=== PATIENT | male | born 1935 | race Hispanic/Latino ===

== ENCOUNTER 2017-06-14 12:42 | Inpatient (IN) | payer MEDICARE, OTHER ==
[2017-06-14 12:50] VITALS: BMI 25.0
[2017-06-14 14:56] LABS: VENOUS BLOOD GAS BASE EXCESS 7.2 mmol/L (0.0-2.0); VENOUS BLOOD PH 7.36 (7.32-7.43)
[2017-06-14 15:07] LABS: BASO # 0.03 K/mm3 (0.0-2.0); BASO % 0.5 % (0.0-3.0); EOS # 0.1 (0.0-0.7); EOS % 1.5 % (1.5-5.0); GRAN # 4.64 (1.4-6.5); GRAN % 76.6 % (50.0-68.0); LYMPH # 0.9 (1.2-3.4); MEAN CELL VOLUME 97.7 fl (80.0-105.0); MEAN CORPUSCULAR HEMOGLOBIN 32.6 pg (25.0-35.0); MEAN CORPUSCULAR HGB CONC 33.3 g/dl (31.0-37.0); MEAN PLATELET VOLUME 10.9 fl (7.0-11.0); MONO # 0.4 (0.1-0.6); MONO % 6.4 % (1.0-6.0); RED CELL DISTRIBUTION WIDTH 14.4 % (11.5-14.5); WHITE BLOOD COUNT 6.1 10^3/ul (4.5-11.0)
[2017-06-14 15:13] LABS: URINE BILIRUBIN NEGATIVE (NEGATIVE); URINE BLOOD NEGATIVE (NEGATIVE); URINE GLUCOSE (UA) NEGATIVE (NEGATIVE); URINE KETONE NEGATIVE (NEGATIVE); URINE LEUKOCYTE ESTERASE NEGATIVE Leu/uL (NEGATIVE); URINE PROTEIN NEGATIVE mg/dL (<30 mg/dL); URINE UROBILINOGEN 0.2 E.U./dL (<1 E.U./dL)
[2017-06-14 15:19] LABS: URINE APPEARANCE CLEAR (CLEAR); URINE COLOR YELLOW (YELLOW)
[2017-06-14 15:22] LABS: GFR AFRICAN-AMERICAN > 60
[2017-06-14 15:24] LABS: ALB/GLOB RATIO 1.3 (1.1-1.8); ALKALINE PHOSPHATASE 56 U/L (38-133); ALT/SGPT 26 U/L (7-56); AST/SGOT 27 U/L (15-59); BILIRUBIN,TOTAL 0.6 mg/dL (0.2-1.3); CALCIUM 9.3 mg/dL (8.4-10.5); CARBON DIOXIDE 30 mmol/L (21-33); CHLORIDE 102 mmol/L (98-107); POTASSIUM 3.9 mmol/L (3.6-5.0); SODIUM 143 mmol/L (132-148); TOTAL PROTEIN 7.2 g/dL (5.8-8.3)
[2017-06-14 15:27] LABS: BLOOD UREA NITROGEN 25 mg/dL (7-21); GLUCOSE,RANDOM 126 mg/dL (70-110)
--- NOTE | 2017-06-14 16:19 | ED PDOC ---
Arrival/HPI - General Chief Complaint: Groin Pain Time Seen by Provider: 06/14/17 13:50 Historian: Patient - History of Present Illness Narrative History of Present Illness (Text): 06/14/17 16:16 81-year-old male presents today with right groin pain and right-sided testicular pain and right lower pelvic pain. Patient states he woke up today with the pain and difficulty ambulating. Patient's caregiver states that when she cleaned the patient last night there was no erythema noted to the scrotum. She states now she is seeing erythema around the scrotum. He denies dysuria or urinary frequency or urgency. He is complaining of fatigue. He denies dizziness or weakness. No chest pain or shortness of breath. He denies nausea vomiting or diarrhea. No other complaints Time/Duration: Other (this morning) Symptom Onset: Sudden Symptom Course: Unchanged Quality: Aching Severity Level: 3 Past Medical History - Provider Review Nursing Documentation Reviewed: Yes - Travel History Have you recently traveled outside [place] w/in the past 3 mons?: No - Infectious Disease Hx of Infectious Diseases: None - Tetanus Immunization Tetanus Immunization: Unknown - Reproductive Currently : No - Cardiac Hx Atrial Fibrillation: Yes Hx Congestive Heart Failure: Yes Hx Hypertension: Yes Hx Pacemaker: Yes ([employer]) - Neurological HX Cerebrovascular Accident: Yes Hx Dementia: Yes Hx Paralysis: No Hx Parkinson's Disease: Yes - Hematological/Oncological Hx Blood Transfusions: No - Integumentary Hx Dermatological Disorder: (dry skin to bilateral lower extremities) - Musculoskeletal/Rheumatological Hx Musculoskeletal Disorders: No - Gastrointestinal Hx Crohn's Disease: No Hx Diverticulitis: No Hx Gastroesophageal Reflux: No Hx Gastrointestinal Ulcer: No Hx Liver Failure: No - Genitourinary/Gynecological Hx Genitourinary Disorders: Yes - Psychiatric Hx Emotional Abuse: No Hx Physical Abuse: No Hx Substance Use: No - Surgical History Other/Comment: Colonoscopy - polyps removal. Leg surgery. Pacemaker - Anesthesia Hx Anesthesia: Yes Hx Anesthesia Reactions: No Hx Malignant Hyperthermia: No - Suicidal Assessment Feels Threatened In Home Enviroment: No Family/Social History - Physician Review Nursing Documentation Reviewed: Yes Family/Social History: Unknown Family HX Smoking Status: Former Smoker Hx Alcohol Use: Yes (QUIT >20 YRS AGO) Hx Substance Use: No Hx Substance Use Treatment: No Allergies/Home Meds Allergies/Adverse Reactions: Allergies Penicillins Allergy (Severe, Verified 11/08/16 16:48) RASH Home Medications: Home Meds Medication Instructions Recorded Confirmed Tamsulosin [Flomax] 0.4 mg PO DAILY 12/28/13 06/14/17 Pramipexole [Mirapex] 0.5 mg PO HS 10/28/14 06/14/17 Warfarin Sodium [Coumadin] 5 mg PO DAILY 10/28/14 06/14/17 Digoxin [Lanoxin] 0.125 mg PO DAILY 07/23/16 06/14/17 Diltiazem HCl [Cardizem Cd] 180 mg PO QAM 07/23/16 06/14/17 Donepezil HCl [Aricept ODT] 10 mg PO DAILY 07/23/16 06/14/17 Fenofibrate Nanocrystallized 145 mg PO DAILY 07/23/16 06/14/17 [Tricor] Furosemide [Lasix] 40 mg PO QAM 07/23/16 06/14/17 Memantine HCl [Namenda Xr] 28 mg PO DAILY 07/23/16 06/14/17 Metoprolol Tartrate [Lopressor] 25 mg PO BID 07/23/16 06/14/17 Review of Systems - Review of Systems Constitutional: Fatigue. absent: Fevers Respiratory: absent: SOB, Cough Cardiovascular: absent: Chest Pain, Palpitations, Syncope Gastrointestinal: Other (groin pain). absent: Abdominal Pain, Diarrhea, Nausea , Vomiting, Appetite Changes, Hematochezia, Hematemesis Genitourinary Male: absent: Dysuria, Frequency, Hematuria Musculoskeletal: Arthralgias (right groin pain/hip pain). absent: Back Pain, Neck Pain Skin: Other (erythema scrotum) Neurological: absent: Headache, Dizziness Physical Exam Vital Signs Reviewed: Yes Vital Signs Temp Pulse Resp BP Pulse Ox 06/14/17 15:10 66 18 143/71 96 06/14/17 14:24 69 18 145/79 96 06/14/17 12:54 97.9 F 75 18 147/87 96 Temperature: Afebrile Blood Pressure: Normal Pulse: Regular Respiratory Rate: Normal Appearance: Positive for: Well-Appearing, Non-Toxic, Comfortable Pain Distress: None Mental Status: Positive for: Alert and Oriented X 3 - Systems Exam Head: Present: Atraumatic Mouth: Present: Moist Mucous Membranes Neck: Present: Normal Range of Motion Respiratory/Chest: Present: Clear to Auscultation, Good Air Exchange. No: Respiratory Distress, Accessory Muscle Use Cardiovascular: Present: Regular Rate and Rhythm, Normal S1, S2. No: Murmurs Abdomen: Present: Tenderness (minimal right lower pelvic tenderness), Normal Bowel Sounds. No: Distention, Peritoneal Signs, Rebound, Guarding Genitourinary Male: Present: Circumcised Penis, Testicle Tenderness (+ right testicular tenderness), Erythema (scrotal erythema; ). No: Normal External Genitalia, Penile Discharge, Testicle Swelling Upper Extremity: Present: Normal Inspection Lower Extremity: Present: NORMAL PULSES, Normal ROM, Neurovascularly Intact. No : CALF TENDERNESS, Tenderness (right hip; no tenderness, edema, or erythema. ), Swelling, Erythema Neurological: Present: GCS=15, Speech Normal Skin: Present: Warm, Dry, Normal Color Psychiatric: Present: Alert, Oriented x 3 Medical Decision Making ED Course and Treatment: 06/14/17 16:21 81yr old male with right groin and testicular pain. difficulty ambulating. cbc: wnl cmp; glucose; 126 Ua; wnl lactate; wnl blood cultures pending urine cultures pending duplex; right leg; no dvt testicular US; FINDINGS: RIGHT TESTICLE: Measures 3.4 x 2.3 x 2.6 cm. Homogeneous echotexture. No mass. 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 Normal flow demonstrated. RIGHT EPIDIDYMIS: Normal size and morphology. LEFT TESTICLE: Measures 3.0 x 2.4 x 2.5 cm. Homogeneous echotexture. No mass. Ectasia of the with rete testis is noted. Normal flow demonstrated. LEFT EPIDIDYMIS: Normal size and morphology. HYDROCELE: Left hydrocele. Trace right hydrocele. VARICOCELE: None. OTHER FINDINGS: None. IMPRESSION: Left hydrocele. Trace right hydrocele. Incidentally noted at ectasia of the rete testis bilaterally. No evidence of epididymo-orchitis. No evidence of testicular torsion. ct abd/pelvis without contrast: FINDINGS: LOWER THORAX: Unremarkable. LIVER: Unremarkable. No gross lesion or ductal dilatation. GALLBLADDER AND BILE DUCTS: Gallbladder removed PANCREAS: Unremarkable. No gross lesion or ductal dilatation. SPLEEN: Unremarkable. ADRENALS: Unremarkable. No mass. KIDNEYS AND URETERS: Unremarkable. No hydronephrosis. No solid mass. VASCULATURE: Unremarkable. No aortic aneurysm. BOWEL: Unremarkable. No obstruction. No gross mural thickening. There is severe diverticulosis APPENDIX: Unremarkable. Normal appendix. PERITONEUM: Unremarkable. No free fluid. No free air. LYMPH NODES: Unremarkable. No enlarged lymph nodes. BLADDER: Unremarkable. REPRODUCTIVE: Fluid is seen within the scrotum bilaterally consistent with hydrocele. There is no evidence of gas-forming infection within the scrotum. BONES: There is a mild compression deformity of L3 OTHER FINDINGS: None. IMPRESSION: Bilateral hydrocele. No evidence of gas-forming infection within the scrotum 06/14/17 17:49 ct abd/pelvis included right hip; no signs of fracture. hip non tender. full rom of hip pt denies pain while at rest. c/o right hip/groin pain and inability to ambulate. tylenol given for pain. i discussed results with patient and patients son. due to the patients inability to ambulate due to right leg/hip/groin pain. and patient lives alone. pt is high fall risk. will observe overnight have PT evaluate. case discussed with dr. sanchez. case discussed with dr. salinas in depth; accepts observation for risk, inability to ambulate due to leg pain Impression: Leg pain, groin pain, inability to ambulate, fall risk, rash scrotum , hydrocele Observational status to [facility]. Dr. salinas. with PT consult. - Lab Interpretations Lab Results: 06/14/17 14:30 06/14/17 14:30 Lab Results 06/14/17 14:30: WBC 6.1, RBC 4.30, Hgb 14.0, Hct 42.0, MCV 97.7, MCH 32.6, MCHC 33.3, RDW 14.4, Plt Count 195, MPV 10.9, Gran % 76.6 H, Lymph % (Auto) 15.0 L, [place] % (Auto) 6.4 H, Eos % (Auto) 1.5, Baso % (Auto) 0.5, Gran # 4.64, Lymph # 0.9 L, [place] # 0.4, Eos # 0.1, Baso # 0.03 06/14/17 14:30: Sodium 143, Chloride 102, Potassium 3.9, Carbon Dioxide 30, Anion Gap 15, BUN 25 H, Creatinine 1.0, Est GFR ( Amer) > 60, Est GFR ( Non-Af Amer) > 60, Random Glucose 126 H, Calcium 9.3, Total Bilirubin 0.6, AST 27, ALT 26, Alkaline Phosphatase 56, Total Protein 7.2, Albumin 4.0, Globulin 3.2, Albumin/Globulin Ratio 1.3 06/14/17 14:30: Urine Color Yellow, Urine Appearance Clear, Urine pH 6.0, Ur Specific [place] 1.015, Urine Protein Negative, Urine Glucose (UA) Negative, Urine Ketones Negative, Urine Blood Negative, Urine Nitrate Negative, Urine Bilirubin Negative, Urine Urobilinogen 0.2, Ur Leukocyte Esterase Negative 06/14/17 14:02: pO2 32, VBG pH 7.36, VBG pCO2 62.0 H, VBG HCO3 35.0 H, VBG Total CO2 36.9 H, VBG O2 Sat (Calc) 69.5 H, VBG Base Excess 7.2 H, VBG Potassium 5.8 H, Sodium 139.0, Chloride 102.0, Glucose 128 H, Lactate 1.2, FiO2 21.0, Venous Blood Potassium 5.8 H - RAD Interpretation Radiology Orders: 06/14/17 14:02 DUPLEX LOWER EXTRM VEIN RIGHT [US] Stat TESTES DUPLEX COMPLETE [US] Stat 06/14/17 14:03 ABD & PELVIS W/O PO OR IV CONT [CT] Stat Disposition/Present on Arrival - Present on Arrival Any Indicators Present on Arrival: No History of DVT/PE: No History of Uncontrolled Diabetes: No Urinary Catheter: No History of Decub. Ulcer: No History Surgical Site Infection Following: None - Disposition Have Diagnosis and Disposition been Completed?: Yes Diagnosis: Hip pain, Groin pain, Scrotal rash, Inability to ambulate due to hip, Risk for falls Disposition: HOSPITALIZED Disposition Time: 17:48 Patient Plan: Observation Patient Problems: Current Active Problems Problem Status Onset Groin pain Acute Hip pain Acute Inability to ambulate due to hip Acute Risk for falls Acute Scrotal rash Acute Condition: FAIR Forms: Handup (Taiwanese)
[2017-06-14 16:37] LABS: INR 2.94 (0.93-1.08); PARTIAL THROMBOPLASTIN TIME 38.5 Seconds (23.7-30.8)
--- NOTE | 2017-06-14 16:48 | CT ---
PROCEDURE: CT Abdomen and Pelvis without intravenous contrast HISTORY: R hip/ groin pain/scrotal redness. abd pain COMPARISON: None. TECHNIQUE: Without contrast.. Contrast Dose: Radiation dose: Total exam DLP = 653 mGy-cm. This CT exam was performed using one or more of the following dose reduction techniques: Automated exposure control, adjustment of the mA and/or kV according to patient size, and/or use of iterative reconstruction technique. FINDINGS: LOWER THORAX: Unremarkable. LIVER: Unremarkable. No gross lesion or ductal dilatation. GALLBLADDER AND BILE DUCTS: Gallbladder removed PANCREAS: Unremarkable. No gross lesion or ductal dilatation. SPLEEN: Unremarkable. ADRENALS: Unremarkable. No mass. KIDNEYS AND URETERS: Unremarkable. No hydronephrosis. No solid mass. VASCULATURE: Unremarkable. No aortic aneurysm. BOWEL: Unremarkable. No obstruction. No gross mural thickening. There is severe diverticulosis APPENDIX: Unremarkable. Normal appendix. PERITONEUM: Unremarkable. No free fluid. No free air. LYMPH NODES: Unremarkable. No enlarged lymph nodes. BLADDER: Unremarkable. REPRODUCTIVE: Fluid is seen within the scrotum bilaterally consistent with hydrocele. There is no evidence of gas-forming infection within the scrotum. BONES: There is a mild compression deformity of L3 OTHER FINDINGS: None. IMPRESSION: Bilateral hydrocele. No evidence of gas-forming infection within the scrotum
--- NOTE | 2017-06-14 17:04 | US ---
HISTORY: testicular pain TECHNIQUE: Realtime sonography through the scrotum with color and doppler flow. COMPARISON: None Available. FINDINGS: RIGHT TESTICLE: Measures 3.4 x 2.3 x 2.6 cm. Homogeneous echotexture. No mass. 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 Normal flow demonstrated. RIGHT EPIDIDYMIS: Normal size and morphology. LEFT TESTICLE: Measures 3.0 x 2.4 x 2.5 cm. Homogeneous echotexture. No mass. Ectasia of the with rete testis is noted. Normal flow demonstrated. LEFT EPIDIDYMIS: Normal size and morphology. HYDROCELE: Left hydrocele. Trace right hydrocele. VARICOCELE: None. OTHER FINDINGS: None. IMPRESSION: Left hydrocele. Trace right hydrocele. Incidentally noted at ectasia of the rete testis bilaterally. No evidence of epididymo-orchitis. No evidence of testicular torsion.
--- NOTE | 2017-06-14 19:01 | US ---
PROCEDURE: Right lower extremity venous US HISTORY: Leg pain and swelling. Evaluate for DVT. PHYSICIAN(S): Senthil Parker M.D. TECHNIQUE: Duplex sonography and color-flow Doppler with graded compression were used to evaluate the deep venous system of the right lower extremity. FINDINGS: The visualized deep venous system of the right lower extremity is sonographically normal and compressible. Normal waveforms and augmentation are seen. There is no sonographic evidence for deep venous thrombosis in the visualized segments of the right lower extremity. IMPRESSION: 1. No sonographic evidence for deep venous thrombosis in the visualized segments of the right lower extremity.
[2017-06-14] MEDS ORDERED: PRAMIPEXOLE 0.5 MG PO SCH (22:00)
--- NOTE | 2017-06-14 23:14 | CP.PCM.PN ---
Subjective - Date & Time of Evaluation Date of Evaluation: 06/15/17 Time of Evaluation: 01:31 - Subjective Subjective: Patient was seen at bedside. Nurse Jessy called and told that he was given 975 mg of tylenol at about 1700 hours. Was still having pain in right groin. He has pain in right proximal medial thigh. Denies history of arthritis or any injury in the area. Has no other complaints. No weakness , no paraesthesia. ROS:Negative except as mentioned above. Medical record was reviewed. Objective - Vital Signs/Intake and Output Vital Signs (last 24 hours): Temp Pulse Resp BP Pulse Ox 97.9 F 68 18 138/68 96 06/14/17 12:54 06/14/17 17:37 06/14/17 17:37 06/14/17 17:37 06/14/17 17:37 Intake and Output: 06/14/17 06/15/17 18:59 06:59 Intake Total 120 Balance 120 - Medications Medications: Current Medications Digoxin (Lanoxin) 0.125 mg PO DAILY [facility] Diltiazem HCl (Cardizem Cd) 180 mg PO QAM [facility] Fenofibrate (Tricor) 145 mg PO DAILY [facility] Metoprolol Tartrate (Lopressor) 25 mg PO BID [facility] Non-Formulary Medication (Donepezil Hcl [Aricept Odt]) 10 mg PO DAILY [facility] Pramipexole Dihydrochloride (Mirapex) 0.5 mg PO HS [facility] Tamsulosin HCl (Flomax) 0.4 mg PO DAILY [facility] Warfarin Sodium (Coumadin) 5 mg PO DAILY [facility] PRN Reason: Protocol - Labs Labs: PT 31.8 Seconds (9.9-11.8) H* 06/14/17 14:30 INR 2.94 (0.93-1.08) H 06/14/17 14:30 APTT 38.5 Seconds (23.7-30.8) H 06/14/17 14:30 - Constitutional Appears: Well, No Acute Distress - Head Exam Head Exam: ATRAUMATIC, NORMAL INSPECTION, NORMOCEPHALIC - Eye Exam Eye Exam: Normal appearance - ENT Exam ENT Exam: Normal External Ear Exam - Neck Exam Neck Exam: Normal Inspection - Respiratory Exam Respiratory Exam: NORMAL BREATHING PATTERN - Cardiovascular Exam Cardiovascular Exam: absent: JVD - GI/Abdominal Exam GI & Abdominal Exam: absent: Distended - Rectal Exam Rectal Exam: Deferred - Exam Additional comments: Deferred. - Extremities Exam Additional comments: Right hip ROM -full. Minimal tenderness in right proximal medial thigh. No redness,no swelling. Scrotum - normal . - Back Exam Back Exam: NORMAL INSPECTION - Neurological Exam Neurological Exam: Alert, Oriented x3 - Psychiatric Exam Psychiatric exam: Normal Affect, Normal Mood - Skin Skin Exam: Normal Color Assessment and Plan - Assessment and Plan (Free Text) Assessment: Right proximal medial thigh pain. HTN. CAD. HLD. Chronic atrial fibrillation. Hx Parkinson's disease. Hx CVA. S/P PPM. Plan: Ultram 50 mg PO now. Continue present management as per PMD.
--- NOTE | 2017-06-15 08:24 | RAD ---
PROCEDURE: CHEST RADIOGRAPH, 1 VIEW HISTORY: testicular pain/groin pain, weakness COMPARISON: Portable chest 11/08/2016 FINDINGS: LUNGS: No acute infiltrate is identified bilaterally. PLEURA: No pneumothorax or pleural fluid seen. CARDIOVASCULAR: Cardiomediastinal silhouette appears stable including pacemaker/defibrillator. OSSEOUS STRUCTURES: No significant abnormalities. VISUALIZED UPPER ABDOMEN: Normal. OTHER FINDINGS: None. IMPRESSION: No definite acute cardiopulmonary disease is appreciated with examination appearing stable compared to prior chest radiograph 11/08/2016 .
[2017-06-15] MEDS: Digoxin 125 mcg (0.125 mg) Tab PO SCH (09:24)
[2017-06-15] MEDS: Oxycodone/Acetaminophen 5/325 mg Tab PO PRN ×2 (09:25→15:00)
[2017-06-15] MEDS: diltiaZEM 180 mg/24 Hours CD Cap PO SCH (09:25)
--- NOTE | 2017-06-15 09:33 | CARD ---
APPROVED REPORT EKG Measurement Heart [id number] <Conclusion> Demand pacemaker, interpretation is based on intrinsic rhythm Underlying atrial fibrillation T wave abnormality, consider inferior ischemia Abnormal ECG
--- NOTE | 2017-06-15 11:56 | CP.PCM.CON ---
History of Present Illness - History of Present Illness History of Present Illness: 81 year old male with PMH of atrial fibrillation, chronic CHF, HTN, S/P pacemaker placement, history of cerebrovascular accident, dementia, Parkinson's disease, history of swelling of the right testes/scrotum in the past ( intermittent) was brought in to [facility] complaining of right groin scrotal pain on the day of admission. Apparently the patient's caregiver noticed some erythema and swelling of the right scrotal area. The patient denies penile discharge, no dysuria, no urinary frequency or urgency, no fever or chills, no nausea or vomiting, no chest pain, no SOB, no abdominal pain, no diarrhea, no headache or dizziness. He also states that he feels better today and that the swelling and pain are much better today. CT scan of the abdomen and pelvis as well as testicular ultrasound were done which showed bilateral hydrocoele. Infectious diseases consult is requested to further evaluate and manage. Review of Systems - Review of Systems All systems: reviewed and no additional remarkable complaints except (as per HPI ) Past Patient History - Infectious Disease Hx of Infectious Diseases: None - Tetanus Immunizations Tetanus Immunization: Unknown - Past Social History Smoking Status: Former Smoker - CARDIAC Hx Congestive Heart Failure: Yes Hx Hypertension: Yes Hx Pacemaker: Yes ([employer]) - NEUROLOGICAL HX Cerebrovascular Accident: Yes Hx Dementia: Yes Hx Parkinson's Disease: Yes - HEMATOLOGICAL/ONCOLOGICAL Hx Blood Transfusions: No - INTEGUMENTARY Hx Dermatological Problems: (dry skin to bilateral lower extremities) - MUSCULOSKELETAL/RHEUMATOLOGICAL Hx Falls: Yes - GASTROINTESTINAL Hx Crohn's Disease: No Hx Diverticulitis: No Hx Gastroesophageal Reflux: No Hx Liver Failure: No - GENITOURINARY/GYNECOLOGICAL Hx Genitourinary Disorders: Yes - PSYCHIATRIC Hx Emotional Abuse: No Hx Physical Abuse: No - SURGICAL HISTORY Other/Comment: Colonoscopy - polyps removal. Leg surgery. Pacemaker - ANESTHESIA Hx Anesthesia: Yes Hx Anesthesia Reactions: No Hx Malignant Hyperthermia: No Meds Allergies/Adverse Reactions: Allergies Allergy/AdvReac Type Severity Reaction Status Date / Time Penicillins Allergy Severe RASH Verified 11/08/16 16:48 - Medications Medications: Current Medications Digoxin (Lanoxin) 0.125 mg PO DAILY [facility] Last Admin: 06/15/17 09:24 Dose: 0.125 mg Diltiazem HCl (Cardizem Cd) 180 mg PO QAM [facility] Last Admin: 06/15/17 09:25 Dose: 180 mg Fenofibrate (Tricor) 145 mg PO DAILY [facility] Last Admin: 06/15/17 09:25 Dose: 145 mg Metoprolol Tartrate (Lopressor) 25 mg PO BID [facility] Last Admin: 06/15/17 09:25 Dose: 25 mg Non-Formulary Medication (Donepezil Hcl [Aricept Odt]) 10 mg PO DAILY [facility] Oxycodone/Acetaminophen (Percocet 5/325 Mg Tab) 1 tab PO Q6H PRN PRN Reason: Pain, moderate (4-7) Stop: 06/18/17 09:14 Last Admin: 06/15/17 09:25 Dose: 1 tab Pramipexole Dihydrochloride (Mirapex) 0.5 mg PO HS [facility] Last Admin: 06/14/17 23:40 Dose: 0.5 mg Tamsulosin HCl (Flomax) 0.4 mg PO DAILY [facility] Last Admin: 06/15/17 09:25 Dose: 0.4 mg Warfarin Sodium (Coumadin) 5 mg PO DAILY [facility] PRN Reason: Protocol Last Admin: 06/15/17 09:24 Dose: 5 mg Physical Exam - Constitutional Appears: Non-toxic, No Acute Distress - Head Exam Head Exam: NORMAL INSPECTION - ENT Exam ENT Exam: Mucous Membranes Moist - Neck Exam Neck exam: Negative for: Lymphadenopathy, Meningismus - Respiratory Exam Respiratory Exam: Decreased Breath Sounds - Cardiovascular Exam Cardiovascular Exam: +S1, +S2 - GI/Abdominal Exam GI & Abdominal Exam: Soft. absent: Tenderness Results - Vital Signs Recent Vital Signs: Last Vital Signs Temp 97.5 F L 06/15/17 06:00 Pulse 81 06/15/17 09:25 Resp 22 06/15/17 06:00 BP 113/89 06/15/17 09:25 Pulse Ox 95 06/15/17 06:00 - Labs Result Diagrams: 06/14/17 14:30 06/14/17 14:30 Assessment & Plan - Assessment and Plan (Free Text) Plan: Assessment Bilateral hydrocoele; currently no evidence of orchitis or epidydimitis on imaging and on physical exam, no evidence of skin and skin structure infection atrial fibrillation chronic CHF HTN S/P pacemaker placement history of cerebrovascular accident dementia Parkinson's disease history of swelling of the right testes/scrotum in the past (intermittent) Plan Reviewed testicular ultrasound and CT scan of the abdomen and pelvis will monitor the patient off antibiotics suggest Urology evaluation for the hydrocoele
[2017-06-15] MEDS: Non Formulary Medication (Donepezil Hcl [Aricept Odt] 10 MG) PO SCH (17:49)
--- NOTE | 2017-06-15 23:36 | HP ---
HISTORY OF PRESENT ILLNESS: Mr. Allison is an 81-year-old male presented to the ED with the right groin pain, right-sided testicular pain. Ultrasound of the testicle showed bilateral hydrocele. CAT scan of the abdomen and pelvis did not show any mass lesions. No fever. No cough with expectoration. He has a history of CHF controlled with current medications. Denies any fevers, cough with expectoration. No travel history. No discharge from penis. PAST MEDICAL HISTORY: CHF, pacemaker, hypertension, atrial fibrillation, currently on Coumadin. Dementia, CVA. PAST SURGICAL HISTORY: Colonoscopy. FAMILY HISTORY: Noncontributory. SOCIAL HISTORY: No history of alcohol abuse. No former smoker. Lives at home. ALLERGIES: PENICILLIN. HOME MEDICATIONS: Flomax 0.4 mg daily, Mirapex 0.5 mg p.o. bedtime, Coumadin 5 mg daily, digoxin 0.125 mg daily, diltiazem 180 mg daily, Aricept 10 mg, fenofibrate 145 mg daily, Lasix 40 mg daily, metoprolol 25 mg p.o. b.i.d., and Namenda 28 mg p.o. daily. REVIEW OF SYSTEMS: As per HPI. A 12-point review of system is reviewed and negative. PHYSICAL EXAMINATION: GENERAL: Comfortable in bed, in no acute distress. VITAL SIGNS: Temperature 98.7, heart rate is 75 per minute, respiratory rate 18 per minute, blood pressure 140/80, and pulse ox is 96%. HEENT: Atraumatic normocephalic. Oral mucosa moist. NECK: Supple. CHEST: Air entry present and equal bilaterally. No added sounds. CARDIOVASCULAR: S1 and S2 normal. No murmur. No gallop. ABDOMEN: Soft, nontender. No hepatosplenomegaly. TESTICULAR EXAM: Swelling and erythema present in bilateral testicle. Hydrocele present. SKIN: Warm and dry. NEURO: Alert and oriented x3. No focal sensory or motor deficit. IMAGING: As per HPI. LABORATORY DATA: White count 6.1, hemoglobin 14, hematocrit 42, platelet count 195. Sodium 143, potassium 3.9, BUN 25, creatinine is 1, glucose is 126. Monocyte 6.4%, lymphocyte 15%, granulocyte 76% elevated. ASSESSMENT: 1. Bilateral hydrocele rule out orchitis. 2. Congestive heart failure. 3. History of cerebrovascular accident. 4. Granulocytosis, monocytosis. 5. Atrial fibrillation on anticoagulation with Coumadin. PLAN: ID consultation requested to rule out orchitis. He is not on any antibiotics right now. We will await ID input for that. Neurology consultation for hydrocele. Continue cardiac med digoxin 0.125 mg daily, Diltiazem 180 mg daily. We will continue metoprolol 25 mg p.o. b.i.d., Percocet p.r.n. for pain. Flomax 0.4 mg daily, Coumadin 5 mg daily. Continue to monitor PT/INR. Audra Joseph MD MTDD
[2017-06-16] MEDS: Oxycodone/Acetaminophen 5/325 mg Tab PO PRN (08:24)
[2017-06-16] MEDS: Digoxin 125 mcg (0.125 mg) Tab PO SCH (09:55)
[2017-06-16] MEDS: diltiaZEM 180 mg/24 Hours CD Cap PO SCH (09:55)
[2017-06-16] MEDS: Non Formulary Medication (Donepezil Hcl [Aricept Odt] 10 MG) PO SCH (09:58)
--- NOTE | 2017-06-16 15:21 | CP.PCM.PN ---
Subjective - Date & Time of Evaluation Date of Evaluation: 06/16/17 Time of Evaluation: 09:50 - Subjective Subjective: Comfortable, not in distress, afebrile, less pain in the right groin area. Objective - Vital Signs/Intake and Output Vital Signs (last 24 hours): Temp Pulse Resp BP Pulse Ox 97.6 F 74 20 149/94 H 97 06/16/17 07:52 06/16/17 07:52 06/16/17 07:52 06/16/17 07:52 06/16/17 07:52 Intake and Output: 06/16/17 06/16/17 06:59 18:59 Intake Total 360 Output Total 250 Balance 110 - Medications Medications: Current Medications Digoxin (Lanoxin) 0.125 mg PO DAILY [facility] Last Admin: 06/15/17 09:24 Dose: 0.125 mg Diltiazem HCl (Cardizem Cd) 180 mg PO QAM [facility] Last Admin: 06/15/17 09:25 Dose: 180 mg Fenofibrate (Tricor) 145 mg PO DAILY [facility] Last Admin: 06/15/17 09:25 Dose: 145 mg Metoprolol Tartrate (Lopressor) 25 mg PO BID [facility] Last Admin: 06/15/17 17:52 Dose: 25 mg Non-Formulary Medication (Donepezil Hcl [Aricept Odt]) 10 mg PO DAILY [facility] Last Admin: 06/15/17 17:49 Dose: Not Given Oxycodone/Acetaminophen (Percocet 5/325 Mg Tab) 1 tab PO Q6H PRN PRN Reason: Pain, moderate (4-7) Stop: 06/18/17 09:14 Last Admin: 06/16/17 08:24 Dose: 1 tab Pramipexole Dihydrochloride (Mirapex) 0.5 mg PO HS [facility] Last Admin: 06/15/17 22:13 Dose: 0.5 mg Tamsulosin HCl (Flomax) 0.4 mg PO DAILY [facility] Last Admin: 06/15/17 09:25 Dose: 0.4 mg Warfarin Sodium (Coumadin) 5 mg PO DAILY [facility] PRN Reason: Protocol Last Admin: 06/15/17 09:24 Dose: 5 mg - Labs Labs: PT 31.8 Seconds (9.9-11.8) H* 06/14/17 14:30 INR 2.94 (0.93-1.08) H 06/14/17 14:30 APTT 38.5 Seconds (23.7-30.8) H 06/14/17 14:30 - Constitutional Appears: Non-toxic, No Acute Distress - Head Exam Head Exam: NORMAL INSPECTION - ENT Exam ENT Exam: Mucous Membranes Moist - Neck Exam Neck Exam: absent: Meningismus - Respiratory Exam Respiratory Exam: Decreased Breath Sounds - Cardiovascular Exam Cardiovascular Exam: +S1, +S2 - GI/Abdominal Exam GI & Abdominal Exam: Soft. absent: Tenderness - Exam Exam: absent: Scrotal Swelling, Testicular Tenderness Assessment and Plan - Assessment and Plan (Free Text) Plan: Assessment Bilateral hydrocoele; currently no evidence of orchitis or epidydimitis on imaging and on physical exam, no evidence of skin and skin structure infection atrial fibrillation chronic CHF HTN S/P pacemaker placement history of cerebrovascular accident dementia Parkinson's disease history of swelling of the right testes/scrotum in the past (intermittent) Plan Reviewed testicular ultrasound and CT scan of the abdomen and pelvis will continue to monitor the patient off antibiotics since he is at risk for infection follow up Urology evaluation for the hydrocoeles
[2017-06-17] MEDS: Digoxin 125 mcg (0.125 mg) Tab PO SCH (09:28)
[2017-06-17] MEDS: diltiaZEM 180 mg/24 Hours CD Cap PO SCH (09:30)
[2017-06-17 09:31] VITALS: PULSE 60
[2017-06-17] MEDS: Non Formulary Medication (Donepezil Hcl [Aricept Odt] 10 MG) PO SCH (09:32)
--- NOTE | 2017-06-17 10:44 | PN ---
DATE: 06/17/2017 SUBJECTIVE: The patient is seen in bed, in no acute distress, nontoxic, and the patient is seen earlier today in 362, bed 2. No fevers or chills. PHYSICAL EXAMINATION: VITAL SIGNS: Temperature is 98, blood pressure is 150/70, and respiratory rate is 16. HEENT: Unremarkable. NECK: Supple. LUNGS: Decreased breath sounds. HEART: Normal S1 and S2. ABDOMEN: Soft. LABORATORY DATA: Reveals a white count of 6.1, hemoglobin of 14, and platelets of 195. Chemistries reveal BUN of 25, creatinine of 1.0, and urinalysis is noted. Microbiology reveals urine cultures are Gram-positive cocci. The blood cultures are no growth and review of orders reveal the patient, which would be off of antibiotics. ASSESSMENT AND PLAN: An 81-year-old male with bilateral hydrocele, currently no evidence of orchitis or epididymitis on imaging and physical exam and off of antibiotics. The patient with atrial fibrillation, chronic congestive heart failure, hypertension with Parkinson's and dementia, and history of cerebrovascular accident. The patient is at risk for developing nosocomial infection. Rizwan Villasenor MD
[2017-06-17 16:12] VITALS: BP 139/94; PULSE 77; RESP 20; TEMP 99.6; O2SAT 96
--- NOTE | 2017-06-20 15:48 | CP.PCM.PN ---
Subjective - Date & Time of Evaluation Date of Evaluation: 06/16/17 Time of Evaluation: 09:00 - Subjective Subjective: Pain scrotal decreased. getting percocet prn for pain. ID consultation appreciated. No evidence of orchitis or epidyidymitis. No fever, cough. able to ambulate without difficulty. Objective - Vital Signs/Intake and Output Vital Signs (last 24 hours): Temp Pulse Resp BP Pulse Ox 99.6 F 77 20 139/94 H 96 06/17/17 16:11 06/17/17 16:11 06/17/17 16:11 06/17/17 16:11 06/17/17 16:11 - Labs Labs: PT 31.8 Seconds (9.9-11.8) H* 06/14/17 14:30 INR 2.94 (0.93-1.08) H 06/14/17 14:30 APTT 38.5 Seconds (23.7-30.8) H 06/14/17 14:30 - Constitutional Appears: Well - Head Exam Head Exam: ATRAUMATIC, NORMAL INSPECTION, NORMOCEPHALIC - Eye Exam Eye Exam: Normal appearance Pupil Exam: NORMAL ACCOMODATION - Neck Exam Neck Exam: Normal Inspection - Respiratory Exam Respiratory Exam: Clear to Ausculation Bilateral, NORMAL BREATHING PATTERN - Cardiovascular Exam Cardiovascular Exam: REGULAR RHYTHM, +S1, +S2 - GI/Abdominal Exam GI & Abdominal Exam: Soft, Normal Bowel Sounds - Exam Exam: Scrotal Swelling - Extremities Exam Extremities Exam: Normal Capillary Refill, Normal Inspection - Back Exam Back Exam: NORMAL INSPECTION - Neurological Exam Neurological Exam: Alert, Awake, CN II-XII Intact, Normal Gait, Oriented x3 - Skin Skin Exam: Normal Color, Warm Assessment and Plan - Assessment and Plan (Free Text) Assessment: ASSESSMENT: 1. Bilateral hydrocele rule out orchitis. 2. Congestive heart failure. 3. History of cerebrovascular accident. 4. Granulocytosis, monocytosis. 5. Atrial fibrillation on anticoagulation with Coumadin. PLAN: ID consultation appreciated, no orchitis. He is not on any antibiotics right now. Urology consultation for hydrocele. Continue cardiac med digoxin 0.125 mg daily, Diltiazem 180 mg daily. We will continue metoprolol 25 mg p.o. b.i.d., Percocet p.r.n. for pain. Flomax 0.4 mg daily, Coumadin 5 mg daily. Continue to monitor PT/INR. discharge planning
--- NOTE | 2017-06-20 15:53 | CP.PCM.DIS ---
Provider - Provider Date of Admission: 06/15/17 08:50 Attending physician: Donta Gomez MD Time Spent in preparation of Discharge (in minutes): 50 Hospital Course - Lab Results Lab Results: Most Recent Lab Values WBC 6.1 10^3/ul (4.5-11.0) 06/14/17 14:30 RBC 4.30 10^6/uL (3.5-6.1) 06/14/17 14:30 Hgb 14.0 g/dL (14.0-18.0) 06/14/17 14:30 Hct 42.0 % (42.0-52.0) 06/14/17 14:30 MCV 97.7 fl (80.0-105.0) 06/14/17 14:30 MCH 32.6 pg (25.0-35.0) 06/14/17 14:30 MCHC 33.3 g/dl (31.0-37.0) 06/14/17 14:30 RDW 14.4 % (11.5-14.5) 06/14/17 14:30 Plt Count 195 10^3/uL (120.0-450.0) 06/14/17 14:30 MPV 10.9 fl (7.0-11.0) 06/14/17 14:30 Gran % 76.6 % (50.0-68.0) H 06/14/17 14:30 Lymph % (Auto) 15.0 % (22.0-35.0) L 06/14/17 14:30 [place] % (Auto) 6.4 % (1.0-6.0) H 06/14/17 14:30 Eos % (Auto) 1.5 % (1.5-5.0) 06/14/17 14:30 Baso % (Auto) 0.5 % (0.0-3.0) 06/14/17 14:30 Gran # 4.64 (1.4-6.5) 06/14/17 14:30 Lymph # 0.9 (1.2-3.4) L 06/14/17 14:30 [place] # 0.4 (0.1-0.6) 06/14/17 14:30 Eos # 0.1 (0.0-0.7) 06/14/17 14:30 Baso # 0.03 K/mm3 (0.0-2.0) 06/14/17 14:30 PT 31.8 Seconds (9.9-11.8) H* 06/14/17 14:30 INR 2.94 (0.93-1.08) H 06/14/17 14:30 APTT 38.5 Seconds (23.7-30.8) H 06/14/17 14:30 pO2 32 mm/Hg (30-55) 06/14/17 14:02 VBG pH 7.36 (7.32-7.43) 06/14/17 14:02 VBG pCO2 62.0 (40-60) H 06/14/17 14:02 VBG HCO3 35.0 mmol/l (21-28) H 06/14/17 14:02 VBG Total CO2 36.9 mmol.L (22-28) H 06/14/17 14:02 VBG O2 Sat (Calc) 69.5 % (40-65) H 06/14/17 14:02 VBG Base Excess 7.2 mmol/L (0.0-2.0) H 06/14/17 14:02 VBG Potassium 5.8 mmol/L (3.6-5.2) H 06/14/17 14:02 Sodium 139.0 mmol/L (132-148) 06/14/17 14:02 Chloride 102.0 mmol/L (98-107) 06/14/17 14:02 Glucose 128 mg/dl (75-110) H 06/14/17 14:02 Lactate 1.2 mmol/L (0.7-2.1) 06/14/17 14:02 FiO2 21.0 % 06/14/17 14:02 Sodium 143 mmol/L (132-148) 06/14/17 14:30 Potassium 3.9 mmol/L (3.6-5.0) 06/14/17 14:30 Chloride 102 mmol/L (98-107) 06/14/17 14:30 Carbon Dioxide 30 mmol/L (21-33) 06/14/17 14:30 Anion Gap 15 (10-20) 06/14/17 14:30 BUN 25 mg/dL (7-21) H 06/14/17 14:30 Creatinine 1.0 mg/dL (0.5-1.4) 06/14/17 14:30 Est GFR ( Amer) > 60 06/14/17 14:30 Est GFR (Non-Af Amer) > 60 06/14/17 14:30 Random Glucose 126 mg/dL (70-110) H 06/14/17 14:30 Calcium 9.3 mg/dL (8.4-10.5) 06/14/17 14:30 Total Bilirubin 0.6 mg/dL (0.2-1.3) 06/14/17 14:30 AST 27 U/L (15-59) 06/14/17 14:30 ALT 26 U/L (7-56) 06/14/17 14:30 Alkaline Phosphatase 56 U/L (38-133) 06/14/17 14:30 Total Protein 7.2 g/dL (5.8-8.3) 06/14/17 14:30 Albumin 4.0 g/dL (3.0-4.8) 06/14/17 14:30 Globulin 3.2 gm/dL 06/14/17 14:30 Albumin/Globulin Ratio 1.3 (1.1-1.8) 06/14/17 14:30 Venous Blood Potassium 5.8 mmol/L (3.6-5.2) H 06/14/17 14:02 Urine Color Yellow (YELLOW) 06/14/17 14:30 Urine Appearance Clear (CLEAR) 06/14/17 14:30 Urine pH 6.0 (4.7-8.0) 06/14/17 14:30 Ur Specific [place] 1.015 (1.005-1.035) 06/14/17 14:30 Urine Protein Negative mg/dL (<30 mg/dL) 06/14/17 14:30 Urine Glucose (UA) Negative mg/dL (NEGATIVE) 06/14/17 14:30 Urine Ketones Negative mg/dL (NEGATIVE) 06/14/17 14:30 Urine Blood Negative (NEGATIVE) 06/14/17 14:30 Urine Nitrate Negative (NEGATIVE) 06/14/17 14:30 Urine Bilirubin Negative (NEGATIVE) 06/14/17 14:30 Urine Urobilinogen 0.2 E.U./dL (<1 E.U./dL) 06/14/17 14:30 Ur Leukocyte Esterase Negative [place]/uL (NEGATIVE) 06/14/17 14:30 - Hospital Course Hospital Course: admitted with scrotal pain. US negative for torsion. showed B/L hydrocele. Scrotal Pain , swelling decreased. No fever. Discharge Exam - Head Exam Head Exam: ATRAUMATIC, NORMAL INSPECTION, NORMOCEPHALIC - Eye Exam Eye Exam: Normal appearance Pupil Exam: NORMAL ACCOMODATION - ENT Exam ENT Exam: Mucous Membranes Moist, Normal Oropharynx - Neck Exam Neck exam: Normal Inspection - Respiratory Exam Respiratory Exam: NORMAL BREATHING PATTERN, UNREMARKABLE - Cardiovascular Exam Cardiovascular Exam: REGULAR RHYTHM, +S1, +S2 - GI/Abdominal Exam GI & Abdominal Exam: Normal Bowel Sounds, Soft, Unremarkable - Extremities Exam Extremities exam: normal inspection - Back Exam Back exam: NORMAL INSPECTION - Neurological Exam Neurological exam: Alert, CN II-XII Intact, Normal Gait, Oriented x3 - Psychiatric Exam Psychiatric exam: Normal Affect - Skin Skin Exam: Normal Color, Warm Discharge Plan - Discharge Medications Prescriptions: RX: oxyCODONE/Acetaminophen [Percocet 5/325 mg Tab] 1 tab PO Q6H PRN #15 tab PRN Reason: Pain, Moderate (4-7) - Follow Up Plan Condition: FAIR Disposition: HOME/ ROUTINE Patient education suggested?: Yes Instructions: Fall Prevention (DC) Additional Instructions: -YOU HAVE BEEN CLEARED FOR DISCHARGE. -PLEASE FOLLOW UP WITH DR. ANDERSON (UROLOGIST) -PLEASE FOLLOW UP WITH YOUR PRIMARY CARE PHYSICIAN WITHIN 1 WEEK. -IF YOUR SYMPTOMS PERSIST OR WORSEN, LET YOUR DOCTOR KNOW AND RETURN TO THE EMERGENCY DEPARTMENT. continue home meds. Referrals: Elian Anderson MD [Staff Provider] -
--- NOTE | 2017-06-21 08:36 | CON ---
DATE: 06/16/2017 GENITOURINARY CONSULTATION CHIEF COMPLAINT: Scrotal and groin pain. HISTORY OF PRESENT ILLNESS: This is an 81-year-old male who was seen in his room at [facility]. The patient presented to the emergency room complaining of right groin pain and right-sided testicular pain. He has history of congestive heart failure, hypertension, atrial fibrillation, dementia and a old CVA. Discussion, he reports the pain had started approximately a week to 5 days before he presented to the emergency room. He reports he is voiding well. He denies any dysuria, urinary frequency, urgency or gross hematuria. He denies any fevers or chills. He describes the pain as a squeezing feeling. There is no radiation. He denies any colicky symptoms. PAST MEDICAL HISTORY: Significant for congestive heart failure, atrial fibrillation, hypertension, dementia and CVA. MEDICATIONS AT HOME: Include Flomax, Mirapex, Coumadin, digoxin, Cardizem, Aricept, Lasix, metoprolol and Namenda. ALLERGIES: ALLERGIC TO PENICILLIN. FAMILY HISTORY: Noncontributory to his scrotal pain. SOCIAL HISTORY: He denies any smoking or EtOH use. REVIEW OF SYSTEMS: A 12-point review of systems was obtained. Positive as per the HPI. Only other positive is some abdominal pain and occasional constipation. Other systems are negative. PHYSICAL EXAMINATION: GENERAL: The patient is awake, he is alert, in no acute distress. He is answering questions although he does have a history of dementia. He is afebrile. VITAL SIGNS: Temperature of 97.6, pulse of 74, BP 149/94, respirations are 20. NECK: Supple. There is no adenopathy. CHEST: Reveals normal inspiratory effort. CARDIAC: Shows irregular rhythm. There is no peripheral edema noted. ABDOMEN: Soft. Nontender. Nondistended. There is no hepatosplenomegaly. There is no costovertebral angle tenderness. GENITOURINARY: Phallus is normal. Scrotum is normal. Testes are bilaterally distended, nontender. No masses. Epididymis are normal. There was no palpable inguinal hernia palpated. LABORATORY DATA: WBC count 6.1, creatinine 1.0 with GFR greater than 60. Urinalysis was negative. Urine culture from 06/14, positive for gram-positive cocci, less than 10,000 CFU per mL. 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 Right epididymis is normal. Left testicle also demonstrates ectasia within the rete testis. Left epididymis is normal. There is trace right hydrocele and reported left hydrocele. The patient had a CT scan which show the kidneys are unremarkable. No hydronephrosis. No solid mass. Bladder was unremarkable. Impression: Bilateral hydroceles. There was no evidence of any infection in the scrotum. IMPRESSION AND PLAN: This is an 81-year-old male with history of dementia and atrial fibrillation. He is complaining of some right scrotal pain. On exam, there was no clinically relevant hydrocele. There was no tenderness noted on his physical exam, unclear what etiology of the pain is. His urine culture was less than 10,000 CFU per mL. However, given the patient's symptoms which are consistent with some mild epididymitis, even though there is no swollen epididymis or tenderness, I would recommended treatment with antibiotics and anti-inflammatories. The patient does not need any surgical intervention at this time. The patient should follow up in my office in approximately 2 to 3 weeks. He is urologically stable at this time and can be discharge from my standpoint when okay with internal medicine. Thank you for allowing us to participate in the care of this patient. We will follow him with you. Paul Joy MD
== END 2017-06-17 18:16 | disposition home or self-care (01) | DRG 730 ==
LOC: ED 12:42 → ERH 18:28 → 3RNO 21:09 → OBSVTOIN 06-15 08:50
PROVIDERS: ADMIT Internal Medicine Nephrology; ATTEND Internal Medicine Nephrology
DX: N43.3 Hydrocele, unspecified (principal); I11.0 Hypertensive heart disease with heart failure; G20 Parkinson's disease; I50.9 Heart failure, unspecified; F02.80 Dementia in other diseases classified elsewhere, unspecified severity, without behavioral disturbance, psychotic disturbance, mood disturbance, and anxiety; E78.5 Hyperlipidemia, unspecified; D72.821 Monocytosis (symptomatic); N45.1 Epididymitis; I48.2 Chronic atrial fibrillation; I25.10 Atherosclerotic heart disease of native coronary artery without angina pectoris; K57.90 Diverticulosis of intestine, part unspecified, without perforation or abscess without bleeding; Z79.01 Long term (current) use of anticoagulants; Z79.899 Other long term (current) drug therapy; Z86.73 Personal history of transient ischemic attack (TIA), and cerebral infarction without residual deficits; Z87.891 Personal history of nicotine dependence; Z91.81 History of falling; Z95.0 Presence of cardiac pacemaker; Z86.010 Personal history of colon polyps; Z88.0 Allergy status to penicillin; R40.2412 Glasgow coma scale score 13-15, at arrival to emergency department; R26.2 Difficulty in walking, not elsewhere classified

== ENCOUNTER 2018-02-28 14:25 | Emergency (ER) | payer MEDICARE ==
[2018-02-28 14:26] VITALS: PULSE 60
[2018-02-28 15:44] VITALS: TEMP 98
--- NOTE | 2018-02-28 16:01 | ED PDOC ---
Arrival/HPI - General Chief Complaint: Abnormal Skin Integrity Time Seen by Provider: 02/28/18 15:40 Historian: Patient, Caregiver - History of Present Illness Narrative History of Present Illness (Text): 02/28/18 15:57 Pt is an 82 yr old male with CAD history presents to the ER with his caregiver for right flank linear rash that started a few days ago. Pt states that he felt a burning sensation that turned into a blistering rash that makes it difficult to sleep at night. Pt denies shortness of breath, chest pain, fever, nausea, vomiting, diarrhea, eye or nose irritation, headache or any other complaint. Pt took his meds today and states he had varicella as a child but has never had a rash like this before. Time/Duration: < week Symptom Onset: Sudden Symptom Course: Unchanged Quality: Aching Severity Level: 5 Activities at Onset: Rest Context: Home Past Medical History - Provider Review Nursing Documentation Reviewed: Yes - Travel History Have you recently traveled outside [place] w/in the past 3 mons?: No - Infectious Disease Hx of Infectious Diseases: None - Tetanus Immunization Tetanus Immunization: Unknown - Cardiac Hx Congestive Heart Failure: Yes Hx Hypertension: Yes Hx Pacemaker: Yes ([employer]) - Neurological HX Cerebrovascular Accident: Yes Hx Dementia: Yes Hx Parkinson's Disease: Yes - Hematological/Oncological Hx Blood Transfusions: No - Integumentary Hx Dermatological Disorder: (dry skin to bilateral lower extremities) - Musculoskeletal/Rheumatological Hx Falls: Yes - Gastrointestinal Hx Crohn's Disease: No Hx Diverticulitis: No Hx Gastroesophageal Reflux: No Hx Liver Failure: No - Genitourinary/Gynecological Hx Genitourinary Disorders: Yes - Psychiatric Hx Emotional Abuse: No Hx Physical Abuse: No Hx Substance Use: No - Surgical History Other/Comment: Colonoscopy - polyps removal. Leg surgery. Pacemaker - Anesthesia Hx Anesthesia: Yes Hx Anesthesia Reactions: No Hx Malignant Hyperthermia: No - Suicidal Assessment Feels Threatened In Home Enviroment: No Family/Social History - Physician Review Nursing Documentation Reviewed: Yes Family/Social History: Unknown Family HX Smoking Status: Former Smoker Hx Alcohol Use: Yes (QUIT >20 YRS AGO) Hx Substance Use: No Hx Substance Use Treatment: No Allergies/Home Meds Allergies/Adverse Reactions: Allergies Penicillins Allergy (Severe, Verified 02/28/18 16:16) RASH Home Medications: Home Meds Medication Instructions Recorded Confirmed Tamsulosin [Flomax] 0.4 mg PO DAILY 12/28/13 06/14/17 Pramipexole [Mirapex] 0.5 mg PO HS 10/28/14 06/14/17 Warfarin Sodium [Coumadin] 5 mg PO DAILY 10/28/14 06/14/17 Digoxin 0.125 mg PO DAILY 07/23/16 06/14/17 Diltiazem HCl [Cardizem Cd] 180 mg PO QAM 07/23/16 06/14/17 Donepezil HCl [Aricept Odt] 10 mg PO DAILY 07/23/16 06/14/17 Fenofibrate Nanocrystallized 145 mg PO DAILY 07/23/16 06/14/17 [Tricor] Furosemide [Lasix] 40 mg PO QAM 07/23/16 06/14/17 Memantine HCl [Namenda Xr] 28 mg PO DAILY 07/23/16 06/14/17 Metoprolol Tartrate [Lopressor] 25 mg PO BID 07/23/16 06/14/17 Review of Systems - Review of Systems Constitutional: Normal Eyes: Normal ENT: Normal Respiratory: Normal Cardiovascular: Normal Gastrointestinal: Normal Genitourinary Male: Normal Musculoskeletal: Normal Skin: Normal, Rash (right side of back and ribs) Neurological: Normal Endocrine: Normal Hemo/Lymphatic: Normal Psychiatric: Normal Physical Exam Vital Signs Reviewed: Yes Vital Signs Temp Pulse Resp BP Pulse Ox 02/28/18 18:05 80 17 150/62 95 02/28/18 17:41 82 18 149/60 93 L 02/28/18 15:35 98.0 F 85 20 155/50 H 98 Temperature: Afebrile Blood Pressure: Normal Pulse: Regular Respiratory Rate: Normal Appearance: Positive for: Well-Appearing, Non-Toxic, Comfortable Pain Distress: Mild Mental Status: Positive for: Alert and Oriented X 3 - Systems Exam Head: Present: Atraumatic, Normocephalic Pupils: Present: PERRL Extroacular Muscles: Present: EOMI Conjunctiva: Present: Normal Mouth: Present: Moist Mucous Membranes Neck: Present: Normal Range of Motion Respiratory/Chest: Present: Clear to Auscultation, Good Air Exchange. No: Respiratory Distress, Accessory Muscle Use Cardiovascular: Present: Regular Rate and Rhythm, Normal S1, S2. No: Murmurs Abdomen: Present: Normal Bowel Sounds. No: Tenderness, Distention, Peritoneal Signs Back: Present: Normal Inspection, Other (ride side vesicular maculopap rash at approx T9). No: CVA Tenderness, Midline Tenderness Upper Extremity: Present: Normal Inspection. No: Cyanosis, Edema Lower Extremity: Present: Normal Inspection. No: Edema Neurological: Present: GCS=15, CN II-XII Intact, Speech Normal, Motor Func Grossly Intact, Normal Sensory Function, Normal Cerebellar Funct, Gait Normal Skin: Present: Warm, Dry, Rashes (vesicular, linear and horizontal rash on the right thoracic/costochondrol aspect both posterior to anterior), Normal Color Psychiatric: Present: Alert, Oriented x 3, Normal Insight, Normal Concentration , Normal Affect, Normal Mood Medical Decision Making ED Course and Treatment: 02/28/18 16:01 Impression Pt is an 82 yr old male with CAD history presents to the ER with his caregiver for right flank linear rash that started a few days. On exam, there is a maculopapular rash that follows a linear pattern going from midline of the thoracic back to midline of the anterior aspect of ribs. Plan cbc, cmp, ua, acyclovir 800 mg PO pain control 02/28/18 17:50 pt waited long time to receive medications ordered and labs still pending Caregiver and pt asked to go home as caregiver would have to leave pt overnight in the hospital; pt has no family nearby explained that if labs returned with any positive findings, we will contact immediately VSS and pt ambulating well on d/c 03/01/18 10:16 Pt was contacted to inform of new Rx for lidocaine/prilocaine crm (EMLA)as the patch was given in error; spoke with the son of the pt who stated preferred pharmacy is [facility] at [address] [place] [address]. [employer] script that was sent electronically was cancelled as per son. - Lab Interpretations Lab Results: 02/28/18 17:30 02/28/18 17:30 Lab Results 02/28/18 17:30: Sodium 146, Potassium 4.7, Chloride 102, Carbon Dioxide 36 H, Anion Gap 14, BUN 31 H, Creatinine 1.3, Est GFR ( Amer) > 60, Est GFR ( Non-Af Amer) 53, Random Glucose 116 H, Calcium 9.2, Total Bilirubin 0.5, AST 29 , ALT 33, Alkaline Phosphatase 60, Total Protein 7.0, Albumin 3.9, Globulin 3.1 , Albumin/Globulin Ratio 1.2 02/28/18 17:30: Urine Color Yellow, Urine Appearance Clear, Urine pH 6.0, Ur Specific [place] 1.020, Urine Protein Negative, Urine Glucose (UA) Negative, Urine Ketones Negative, Urine Blood Negative, Urine Nitrate Negative, Urine Bilirubin Negative, Urine Urobilinogen 0.2, Ur Leukocyte Esterase Negative 02/28/18 17:30: WBC 4.9, RBC 4.04, Hgb 13.4 L, Hct 40.4 L, MCV 100.0, MCH 33.2, MCHC 33.2, RDW 14.6 H, Plt Count 145, MPV 10.0, Gran % 49.3 L, Lymph % (Auto) 35.3 H, [place] % (Auto) 10.5 H, Eos % (Auto) 3.9, Baso % (Auto) 1.0, Gran # 2.40, Lymph # (Auto) 1.7, [place] # (Auto) 0.5, Eos # (Auto) 0.2, Baso # (Auto) 0.05 - Medication Orders Current Medication Orders: Discontinued Medications Acetaminophen (Tylenol 325mg Tab) 650 mg PO STAT STA Stop: 02/28/18 16:33 Last Admin: 02/28/18 17:12 Dose: Acyclovir (Zovirax) 800 mg PO STAT STA PRN Reason: Protocol Stop: 02/28/18 16:34 Last Admin: 02/28/18 17:12 Dose: 800 mg Disposition/Present on Arrival - Present on Arrival Any Indicators Present on Arrival: Yes History of DVT/PE: No History of Uncontrolled Diabetes: No Urinary Catheter: No History Surgical Site Infection Following: None - Disposition Have Diagnosis and Disposition been Completed?: Yes Diagnosis: Varicella zoster Disposition: HOME/ ROUTINE Disposition Time: 17:45 Patient Plan: Discharge Condition: STABLE Discharge Instructions (ExitCare): Shingles Additional Instructions: Andresa thank you for letting us take care of you today. Your provider was VICKY Martinez. You were treated for Shingles Rash. The emergency medical care you received today was directed at your acute symptoms. If you were prescribed any medication, please fill it and take as directed. It may take several days for your symptoms to resolve. Return to the Emergency Department if your symptoms worsen, do not improve, or if you have any other problems. Please take the medication as directed and see your doctor for follow up care* * If there is anything found on the lab results we ordered today, we will contact you. Please contact your doctor or call one of the physicians/clinics you have been referred to that are listed on the Patient Visit Information form that is included in your discharge packet. Bring any paperwork you were given at discharge with you along with any medications you are taking to your follow up visit. Our treatment cannot replace ongoing medical care by a primary care provider (PCP) outside of the emergency department. Thank you for allowing the [facility] team to be part of your care today. If you had a blood, urine, or wound culture: It will take several days for the results, if any change in treatment is needed we will contact you. Prescriptions: Acetaminophen [Tylenol] 500 mg PO Q6 #20 capsule Acyclovir [Zovirax] 800 mg PO Q4 7 Days #42 tablet Lidocaine/Prilocaine [Lido-Prilo Marco Pack] 1 each TP Q8 5 Days #1 kit Referrals: Cherri Leonard MD [Primary Care Provider] - Follow up with primary Forms: [employer] (Kazakh)
[2018-02-28 16:16] VITALS: BMI 27.1
[2018-02-28 17:55] LABS: ALB/GLOB RATIO 1.2 (1.1-1.8); ALBUMIN 3.9 g/dL (3.0-4.8); ALT/SGPT 33 U/L (7-56); AST/SGOT 29 U/L (17-59); BASO # 0.05 K/mm3 (0.0-2.0); BLOOD UREA NITROGEN 31 mg/dL (7-21); CALCIUM 9.2 mg/dL (8.4-10.5); EOS # 0.2 (0.0-0.7); EOS % 3.9 % (1.5-5.0); GFR NON-AFRICAN AMERICAN 53; GRAN # 2.4 (1.4-6.5); GRAN % 49.3 % (50.0-68.0); HEMOGLOBIN 13.4 g/dL (14.0-18.0); LYMPH # 1.7 (1.2-3.4); LYMPH % 35.3 % (22.0-35.0); MEAN CORPUSCULAR HEMOGLOBIN 33.2 pg (25.0-35.0); MEAN CORPUSCULAR HGB CONC 33.2 g/dl (31.0-37.0); MONO # 0.5 (0.1-0.6); MONO % 10.5 % (1.0-6.0); RBC 4.04 10^6/uL (3.5-6.1); RED CELL DISTRIBUTION WIDTH 14.6 % (11.5-14.5); WHITE BLOOD COUNT 4.9 10^3/ul (4.5-11.0)
[2018-02-28 18:00] LABS: URINE BILIRUBIN NEGATIVE (NEGATIVE); URINE BLOOD NEGATIVE (NEGATIVE); URINE GLUCOSE (UA) NEGATIVE (NEGATIVE); URINE LEUKOCYTE ESTERASE NEGATIVE Leu/uL (NEGATIVE); URINE PROTEIN NEGATIVE mg/dL (<30 mg/dL); URINE UROBILINOGEN 0.2 E.U./dL (<1 E.U./dL)
[2018-02-28 18:01] LABS: URINE APPEARANCE CLEAR (CLEAR); URINE COLOR YELLOW (YELLOW)
[2018-02-28 18:08] VITALS: BP 150/62; PULSE 80; RESP 17; O2SAT 95
== END 2018-02-28 18:08 | disposition home or self-care (01) ==
LOC: ED 14:25
DX: B02.9 Zoster without complications (principal); G20 Parkinson's disease; I50.9 Heart failure, unspecified; I10 Essential (primary) hypertension; I25.10 Atherosclerotic heart disease of native coronary artery without angina pectoris; Z87.891 Personal history of nicotine dependence

== ENCOUNTER 2018-06-17 18:51 | Emergency (ER) | payer MEDICARE ==
[2018-06-17 18:51] VITALS: PULSE 60
[2018-06-17 19:14] VITALS: BMI 24.4
[2018-06-17 19:19] VITALS: RESP 18; TEMP 97.7; O2SAT 95
--- NOTE | 2018-06-17 19:23 | ED PDOC ---
Arrival/HPI - General Time Seen by Provider: 06/17/18 19:07 Historian: Patient - History of Present Illness Narrative History of Present Illness (Text): 06/17/18 19:12 82yo male with past medical history of hypertension, CHF, CVA, Parkinson's disease , pacemaker present to emergency department with his overnight caregiver for evaluation of right eye redness. Patient states he had a cataract surgery a week ago and removed the patch today. Notes that he noticed the redness when he took the patch out today. He otherwise denies pain, visual changes, discharge, headache, any other complaint. He saw his epoxy coatings installer this week and was given 2unknown eye drops. Denies any other complaint. Past Medical History - Provider Review Nursing Documentation Reviewed: Yes - Infectious Disease Hx of Infectious Diseases: None - Tetanus Immunization Tetanus Immunization: Unknown - Cardiac Hx Congestive Heart Failure: Yes Hx Hypertension: Yes Hx Pacemaker: Yes ([employer]) - Neurological HX Cerebrovascular Accident: Yes Hx Dementia: Yes Hx Parkinson's Disease: Yes - Hematological/Oncological Hx Blood Transfusions: No - Integumentary Hx Dermatological Disorder: (dry skin to bilateral lower extremities) - Musculoskeletal/Rheumatological Hx Falls: Yes - Gastrointestinal Hx Crohn's Disease: No Hx Diverticulitis: No Hx Gastroesophageal Reflux: No Hx Liver Failure: No - Genitourinary/Gynecological Hx Genitourinary Disorders: Yes - Psychiatric Hx Emotional Abuse: No Hx Physical Abuse: No Hx Substance Use: No - Surgical History Other/Comment: Colonoscopy - polyps removal. Leg surgery. Pacemaker - Anesthesia Hx Anesthesia: Yes Hx Anesthesia Reactions: No Hx Malignant Hyperthermia: No - Suicidal Assessment Feels Threatened In Home Enviroment: No Family/Social History - Physician Review Nursing Documentation Reviewed: Yes Family/Social History: Unknown Family HX Smoking Status: Former Smoker Hx Alcohol Use: Yes (QUIT >20 YRS AGO) Hx Substance Use: No Hx Substance Use Treatment: No Allergies/Home Meds Allergies/Adverse Reactions: Allergies Penicillins Allergy (Severe, Verified 02/28/18 16:16) RASH Home Medications: Home Meds Medication Instructions Recorded Confirmed Tamsulosin [Flomax] 0.4 mg PO DAILY 12/28/13 06/17/18 Pramipexole [Mirapex] 0.5 mg PO HS 10/28/14 06/17/18 Warfarin Sodium [Coumadin] 5 mg PO DAILY 10/28/14 06/17/18 Digoxin 0.125 mg PO DAILY 07/23/16 06/17/18 Diltiazem HCl [Cardizem Cd] 180 mg PO QAM 07/23/16 06/17/18 Donepezil HCl [Aricept Odt] 10 mg PO DAILY 07/23/16 06/17/18 Fenofibrate Nanocrystallized 145 mg PO DAILY 07/23/16 06/17/18 [Tricor] Furosemide [Lasix] 40 mg PO QAM 07/23/16 06/17/18 Memantine HCl [Namenda Xr] 28 mg PO DAILY 07/23/16 06/17/18 Metoprolol Tartrate [Lopressor] 25 mg PO BID 07/23/16 06/17/18 Review of Systems - Physician Review All systems were reviewed & negative as marked: Yes - Review of Systems Constitutional: Normal Eyes: Other (Right eye redness) ENT: Normal Respiratory: Normal Cardiovascular: Normal Gastrointestinal: Normal Genitourinary Male: Normal Musculoskeletal: Normal Skin: Normal Neurological: Normal Endocrine: Normal Hemo/Lymphatic: Normal Psychiatric: Normal Physical Exam Vital Signs Reviewed: Yes Vital Signs Temp Pulse Resp BP Pulse Ox 06/17/18 19:19 97.7 F 92 H 18 113/84 95 Temperature: Afebrile Blood Pressure: Normal Pulse: Regular Respiratory Rate: Normal Appearance: Positive for: Well-Appearing, Non-Toxic, Comfortable Pain Distress: None Mental Status: Positive for: Alert and Oriented X 3 - Systems Exam Head: Present: Atraumatic, Normocephalic Pupils: Present: PERRL Extroacular Muscles: Present: EOMI Conjunctiva: Present: Normal. No: Icteric (Blood shot redness noted on inferior part) Mouth: Present: Moist Mucous Membranes Neck: Present: Normal Range of Motion Respiratory/Chest: Present: Clear to Auscultation, Good Air Exchange. No: Respiratory Distress, Accessory Muscle Use Cardiovascular: Present: Regular Rate and Rhythm, Normal S1, S2. No: Murmurs Abdomen: No: Tenderness, Distention, Peritoneal Signs Back: Present: Normal Inspection Upper Extremity: Present: Normal Inspection. No: Cyanosis, Edema Lower Extremity: Present: Normal Inspection. No: Edema Neurological: Present: GCS=15, CN II-XII Intact, Speech Normal Skin: Present: Warm, Dry, Normal Color. No: Rashes Psychiatric: Present: Alert, Oriented x 3, Normal Insight, Normal Concentration Medical Decision Making ED Course and Treatment: 06/17/18 19:51 Pt in emergency department for stated history. He denies eye pain, visual changes, discharge, headache, focal weakness, any other complaint. His visual acuity test Right 20/70 Left 20/70 both 20/70 He had conjunctival redness on inferior part of his right eye. Patient subconjunctival hemorrhage. Pt was reassured. He have epoxy coatings installer and was advised to follow up with the epoxy coatings installer. Disposition/Present on Arrival - Present on Arrival Any Indicators Present on Arrival: No History of DVT/PE: No History of Uncontrolled Diabetes: No Urinary Catheter: No History Surgical Site Infection Following: None - Disposition Have Diagnosis and Disposition been Completed?: Yes Diagnosis: Subconjunctival hemorrhage Disposition: HOME/ ROUTINE Disposition Time: 19:30 Patient Plan: Discharge Patient Problems: Current Active Problems Problem Status Onset Subconjunctival hemorrhage Acute Condition: STABLE Discharge Instructions (ExitCare): Subconjunctival Hemorrhage Additional Instructions: Follow up with your Opthalmologist Return to emergency department for any new or worsening symptoms Referrals: Josué Barfield MD [Staff Provider] - Follow up with primary
[2018-06-17 19:53] VITALS: BP 115/72; PULSE 85
== END 2018-06-17 19:50 | disposition home or self-care (01) ==
LOC: ED 18:51
DX: H11.31 Conjunctival hemorrhage, right eye (principal); G20 Parkinson's disease; I10 Essential (primary) hypertension; I50.9 Heart failure, unspecified; Z86.73 Personal history of transient ischemic attack (TIA), and cerebral infarction without residual deficits; Z87.891 Personal history of nicotine dependence

== ENCOUNTER 2018-12-25 13:36 | Emergency (ER) | payer MEDICARE ==
[2018-12-25 13:37] VITALS: PULSE 60; BMI 27.1
[2018-12-25 14:29] VITALS: BP 120/78; RESP 18
--- NOTE | 2018-12-25 16:21 | ED PDOC ---
Arrival/HPI - General Chief Complaint: Finger,Hand,&Wrist Time Seen by Provider: 12/25/18 15:00 Historian: Patient - History of Present Illness Narrative History of Present Illness (Text): Patient reports 1 week history of pain to the R hand 3rd digit, states that sometimes the finger bends and he cannot straighten it on his own, has to manually straighten it with his left hand. Denies any trauma. Denies any other symptoms. Time/Duration: < week Symptom Onset: Sudden Symptom Course: Unchanged Activities at Onset: Light Context: Home Past Medical History - Provider Review Nursing Documentation Reviewed: Yes - Infectious Disease Hx of Infectious Diseases: None - Tetanus Immunization Tetanus Immunization: Unknown - Cardiac Hx Congestive Heart Failure: Yes Hx Hypertension: Yes Hx Pacemaker: Yes ([employer]) - Neurological HX Cerebrovascular Accident: Yes Hx Dementia: Yes Hx Parkinson's Disease: Yes - Hematological/Oncological Hx Blood Transfusions: No - Integumentary Hx Dermatological Disorder: (dry skin to bilateral lower extremities) - Musculoskeletal/Rheumatological Hx Falls: Yes - Gastrointestinal Hx Crohn's Disease: No Hx Diverticulitis: No Hx Gastroesophageal Reflux: No Hx Liver Failure: No - Genitourinary/Gynecological Hx Genitourinary Disorders: Yes - Psychiatric Hx Emotional Abuse: No Hx Physical Abuse: No Hx Substance Use: No - Surgical History Other/Comment: Colonoscopy - polyps removal. Leg surgery. Pacemaker - Anesthesia Hx Anesthesia: Yes Hx Anesthesia Reactions: No Hx Malignant Hyperthermia: No - Suicidal Assessment Feels Threatened In Home Enviroment: No Family/Social History - Physician Review Nursing Documentation Reviewed: Yes Family/Social History: No Known Family HX Smoking Status: Former Smoker Hx Alcohol Use: Yes (QUIT >20 YRS AGO) Hx Substance Use: No Hx Substance Use Treatment: No Allergies/Home Meds Allergies/Adverse Reactions: Allergies Penicillins Allergy (Severe, Verified 02/28/18 16:16) RASH Home Medications: Home Meds Medication Instructions Recorded Confirmed Tamsulosin [Flomax] 0.4 mg PO DAILY 12/28/13 06/17/18 Pramipexole [Mirapex] 0.5 mg PO HS 10/28/14 06/17/18 Warfarin Sodium [Coumadin] 5 mg PO DAILY 10/28/14 06/17/18 Digoxin 0.125 mg PO DAILY 07/23/16 06/17/18 Diltiazem HCl [Cardizem Cd] 180 mg PO QAM 07/23/16 06/17/18 Donepezil HCl [Aricept Odt] 10 mg PO DAILY 07/23/16 06/17/18 Fenofibrate Nanocrystallized 145 mg PO DAILY 07/23/16 06/17/18 [Tricor] Furosemide [Lasix] 40 mg PO QAM 07/23/16 06/17/18 Memantine HCl [Namenda Xr] 28 mg PO DAILY 07/23/16 06/17/18 Metoprolol Tartrate [Lopressor] 25 mg PO BID 07/23/16 06/17/18 Review of Systems - Physician Review All systems were reviewed & negative as marked: Yes - Review of Systems Constitutional: absent: Fatigue, Fevers Respiratory: absent: SOB, Cough Cardiovascular: absent: Chest Pain, Syncope Gastrointestinal: absent: Abdominal Pain, Diarrhea, Nausea, Vomiting Musculoskeletal: Arthralgias (Right 3rd digit). absent: Back Pain, Myalgias Neurological: absent: Headache, Dizziness Physical Exam Vital Signs Reviewed: Yes Vital Signs Temp Pulse Resp BP Pulse Ox 12/25/18 13:37 98 F 160 H 18 120/78 96 Temperature: Afebrile Blood Pressure: Normal Pulse: Irregular Respiratory Rate: Normal Appearance: Positive for: Well-Appearing Mental Status: Positive for: Alert and Oriented X 3 - Systems Exam Head: Present: Atraumatic, Normocephalic Upper Extremity: Present: Other (R hand 3rd digit with DIP and PIP join held in flexed position. Patient is unable to actively extend the digit, however the finger is able to be passively extended. There is some pain with movement of the finger. No swelling, erythema, or any signs of infection.) Neurological: Present: GCS=15, Speech Normal Psychiatric: Present: Alert, Oriented x 3, Normal Insight, Normal Concentration Medical Decision Making ED Course and Treatment: 12/25/18 16:28 Impression: 83 year old M presents to the emergency department complaining of painful, def ormation of the right 3rd digit x1week. Plan: --Ibuprofen --Right hand xray -- Reassess and disposition Prior Visits: Notes and results from previous visits were reviewed. Progress Notes: R 3rd digit XR with no acute fx or dislocation noted. Suspect trigger finger of R 3rd digit, placed in aluminum splint and advised patient to take NSAIDs for inflammation and pain. Patient advised to follow up as outpatient, referred to Dr. Dominguez. Patient verbalized understanding. Stable for discharge home. - RAD Interpretation Radiology Orders: 12/25/18 15:25 HAND RIGHT 3RD DIGIT (FINGER) [RAD] Stat - Medication Orders Current Medication Orders: Discontinued Medications Ibuprofen (Motrin Tab) 600 mg PO STAT STA Stop: 12/25/18 15:31 - PA / BARLEY STEEPER / Resident Statement MD/DO has reviewed & agrees with the documentation as recorded. - Scribe Statement The provider has reviewed the documentation as recorded by the Milly Grey All medical record entries made by the Milly were at my direction and personally dictated by me. I have reviewed the chart and agree that the record accurately reflects my personal performance of the history, physical exam, medical decision making, and the department course for this patient. I have also personally directed, reviewed, and agree with the discharge instructions and disposition. Disposition/Present on Arrival - Present on Arrival Any Indicators Present on Arrival: No History of DVT/PE: No History of Uncontrolled Diabetes: No Urinary Catheter: No History of Decub. Ulcer: No History Surgical Site Infection Following: None - Disposition Have Diagnosis and Disposition been Completed?: Yes Diagnosis: Trigger finger of right hand Disposition: HOME/ ROUTINE Disposition Time: 17:11 Condition: GOOD Discharge Instructions (ExitCare): Trigger Finger (DC) Additional Instructions: ANN LE JR, thank you for letting us take care of you today. Your provider was Starr Abarca MD and you were treated for hand problem. The emergency medical care you received today was directed at your acute symptoms. If you were prescribed any medication, please fill it and take as directed. It may take several days for your symptoms to resolve. Return to the Emergency Department if your symptoms worsen, do not improve, or if you have any other problems. Please contact your doctor or call one of the physicians/clinics you have been referred to that are listed on the Patient Visit Information form that is included in your discharge packet. Bring any paperwork you were given at discharge with you along with any medications you are taking to your follow up visit. Our treatment cannot replace ongoing medical care by a primary care provider outside of the emergency department. Thank you for allowing the [facility] [employer] team to be part of your care today. If you had an X-Ray or CT scan: A Radiologist will review the ED reading if any change in treatment is needed we will contact you. If you had a blood, urine, or wound culture: It will take several days for the results, if any change in treatment is needed we will contact you. If you had an STI test: It will take 48 hours for the results. Please call after 1 week if you have not heard back. Referrals: Halle Dominguez MD [Staff Provider] - Follow up with primary Forms: [employer] (Guyanese)
[2018-12-25 16:51] VITALS: PULSE 72; TEMP 98.7; O2SAT 98
--- NOTE | 2018-12-25 17:49 | RAD ---
Date of service: 12/25/2018 PROCEDURE: Right middle finger radiographs. HISTORY: pain and deformity COMPARISON: None. TECHNIQUE: AP radiograph of the right hand, as well as spot oblique and lateral images of right middle finger were obtained. FINDINGS: RIGHT MIDDLE FINGER: Right middle finger normal, without fracture of focal lesion. Remainder of the right hand (as seen on the AP view) grossly unremarkable. JOINTS: Osteoarthritic changes. These primarily affecting proximal and distal interphalangeal joints. SOFT TISSUES: Distal tuft region soft tissue swelling. No visualized radiopaque foreign body. OTHER FINDINGS: None. IMPRESSION: Soft tissue swelling without acute articular or osseous abnormality. Otherwise, unremarkable right middle finger radiographs.
== END 2018-12-25 17:11 | disposition home or self-care (01) ==
LOC: ED 13:36
DX: M65.331 Trigger finger, right middle finger (principal); G20 Parkinson's disease; I50.9 Heart failure, unspecified; I10 Essential (primary) hypertension; Z87.891 Personal history of nicotine dependence; Z86.73 Personal history of transient ischemic attack (TIA), and cerebral infarction without residual deficits

== ENCOUNTER 2019-02-07 16:28 | Emergency (ER) | payer MEDICARE ==
[2019-02-07 16:29] VITALS: PULSE 60; BMI 27.1
[2019-02-07 16:42] VITALS: RESP 18
--- NOTE | 2019-02-07 17:30 | ED PDOC ---
Arrival/HPI - General Chief Complaint: Cough, Cold, Congestion Historian: Caregiver - History of Present Illness Narrative History of Present Illness (Text): 02/07/19 17:17 83 year old M with pmh hypertension, CHF, CVA, Parkinson's disease, and pacemaker presents complaining of rhinorrhea, runny eyes, and fatigue since this morning per caregiver. Caregiver reports calling son who advised to present patient to the emergency room after learning about previously noted symptoms. Caregiver mentions patient was tired today. He is complaint with coumadin. Patient denies any trauma, falls, fevers, chills, headache, dizziness, chest pain, shortness of breath, dyspnea on exertion, cough, abdominal pain, nausea, vomiting, diarrhea, back pain, neck pain, or any other complaint. PMD: Dr. Alba Symptom Onset: Sudden Symptom Course: Unchanged Activities at Onset: Light Context: Home Past Medical History - Provider Review Nursing Documentation Reviewed: Yes - Infectious Disease Hx of Infectious Diseases: None - Tetanus Immunization Tetanus Immunization: Unknown - Cardiac Hx Congestive Heart Failure: Yes Hx Hypertension: Yes Hx Pacemaker: Yes ([employer]) - Neurological HX Cerebrovascular Accident: Yes Hx Dementia: Yes Hx Parkinson's Disease: Yes - Hematological/Oncological Hx Blood Transfusions: No - Integumentary Hx Dermatological Disorder: (dry skin to bilateral lower extremities) - Musculoskeletal/Rheumatological Hx Falls: Yes - Gastrointestinal Hx Crohn's Disease: No Hx Diverticulitis: No Hx Gastroesophageal Reflux: No Hx Liver Failure: No - Genitourinary/Gynecological Hx Genitourinary Disorders: Yes - Psychiatric Hx Emotional Abuse: No Hx Physical Abuse: No Hx Substance Use: No - Surgical History Other/Comment: Colonoscopy - polyps removal. Leg surgery. Pacemaker - Anesthesia Hx Anesthesia: Yes Hx Anesthesia Reactions: No Hx Malignant Hyperthermia: No - Suicidal Assessment Feels Threatened In Home Enviroment: No Family/Social History - Physician Review Nursing Documentation Reviewed: Yes Family/Social History: Unknown Family HX Smoking Status: Former Smoker Hx Alcohol Use: Yes (QUIT >20 YRS AGO) Hx Substance Use: No Hx Substance Use Treatment: No Allergies/Home Meds Allergies/Adverse Reactions: Allergies Penicillins Allergy (Severe, Verified 02/07/19 16:42) RASH Home Medications: Home Meds Medication Instructions Recorded Confirmed Tamsulosin [Flomax] 0.4 mg PO DAILY 12/28/13 02/07/19 Pramipexole [Mirapex] 0.5 mg PO HS 10/28/14 02/07/19 Warfarin Sodium [Coumadin] 5 mg PO DAILY 10/28/14 02/07/19 Digoxin 0.125 mg PO DAILY 07/23/16 02/07/19 Diltiazem HCl [Cardizem Cd] 180 mg PO QAM 07/23/16 02/07/19 Donepezil HCl [Aricept Odt] 10 mg PO DAILY 07/23/16 02/07/19 Fenofibrate Nanocrystallized 145 mg PO DAILY 07/23/16 02/07/19 [Tricor] Furosemide [Lasix] 40 mg PO QAM 07/23/16 02/07/19 Memantine HCl [Namenda Xr] 28 mg PO DAILY 07/23/16 02/07/19 Metoprolol Tartrate [Lopressor] 25 mg PO BID 07/23/16 02/07/19 Review of Systems - Physician Review All systems were reviewed & negative as marked: Yes - Review of Systems Constitutional: Fatigue. absent: Fevers ENT: Sore Throat, Rhinorrhea, Sinus Congestion. absent: Epistaxis Respiratory: absent: SOB, Cough, Wheezing Cardiovascular: absent: Chest Pain, Palpitations Gastrointestinal: absent: Abdominal Pain, Diarrhea, Nausea, Vomiting Musculoskeletal: absent: Arthralgias, Back Pain Skin: absent: Cellulitis Neurological: absent: Headache, Dizziness Physical Exam Vital Signs Reviewed: Yes Vital Signs Temp Pulse Resp BP Pulse Ox 02/07/19 16:34 99.9 F H 107 H 18 134/79 95 Temperature: Afebrile Blood Pressure: Normal Pulse: Tachycardic Respiratory Rate: Normal Appearance: Positive for: Well-Appearing, Non-Toxic, Comfortable Pain Distress: Mild Mental Status: Positive for: Alert and Oriented X 3 - Systems Exam Head: Present: Atraumatic, Normocephalic Pupils: Present: PERRL Extroacular Muscles: Present: EOMI Conjunctiva: Present: Normal Mouth: Present: Moist Mucous Membranes Pharnyx: Present: ERYTHEMA Nose (Internal): Present: Rhinorrhea, Purulent Mucous. No: Septal Deviation, Epistaxis Neck: Present: Normal Range of Motion Respiratory/Chest: Present: Decreased Breath Sounds (at bases), Rhonchi (diffuse greater at right sided). No: Respiratory Distress, Accessory Muscle Use Cardiovascular: Present: Irregular Rhythm (irregularly), Tachycardic. No: Murmurs Abdomen: No: Tenderness, Distention, Peritoneal Signs Back: Present: Normal Inspection Upper Extremity: Present: Normal Inspection. No: Cyanosis, Edema Lower Extremity: Present: Edema (baseline 2+ pedal edema b/l) Neurological: Present: GCS=15, CN II-XII Intact, Speech Normal Skin: Present: Warm, Dry, Normal Color. No: Rashes Psychiatric: Present: Alert, Oriented x 3, Normal Insight, Normal Concentration Medical Decision Making ED Course and Treatment: 02/07/19 17:30 Impression: 83 year old M presents complaining of rhinorrhea, runny eyes, and fatigue since this morning per caregiver. Caregiver reports calling son who advised to present patient to the emergency room after learning about previously noted symptoms Plan: -- Labs -- EKG -- Urinalysis -- Influenza A -- Reassess and disposition Prior Visits: Notes and results from previous visits were reviewed. Patient was last seen in the emergency department on Progress Notes: 02/07/19 17:55 EKG: Ordered, reviewed, and independently interpreted the EKG. Rate: 106 BPM Rhythm:A- fib Interpretation: No ST-segment elevations or depressions Comparison: Not significantly different from EKG on May 2017 02/07/19 18:31 Chest X-ray No active disease. No significant interval change compared to the prior examination 02/07/19 18:56 Talked with patient's child care aide about decision to discharge patient's after vitals are reassessed. 02/07/19 19:09 Patient is negative for flu a/b Negative for strep 02/07/19 20:30 Spoke with pt's caregiver, present at bedside. States pt appears appears "different" and has been more tired than usual. Pt takes Coumadin regularly. Will order CT Head. HR improved: 94 bpm. 02/07/19 20:[address] Gallegos, pending CT Head, re-evaluation, and disposition. 02/07/19 20:48 - RAD Interpretation Radiology Orders: 02/07/19 17:13 CHEST PORTABLE [RAD] Stat - Scribe Statement The provider has reviewed the documentation as recorded by the Milly Grey All medical record entries made by the Scribe were at my direction and personally dictated by me. I have reviewed the chart and agree that the record accurately reflects my personal performance of the history, physical exam, medical decision making, and the department course for this patient. I have also personally directed, reviewed, and agree with the discharge instructions and disposition. Disposition/Present on Arrival - Present on Arrival Any Indicators Present on Arrival: No History of DVT/PE: No History of Uncontrolled Diabetes: No Urinary Catheter: No History of Decub. Ulcer: No History Surgical Site Infection Following: None - Disposition Have Diagnosis and Disposition been Completed?: No Diagnosis: Upper respiratory infection Disposition Time: 20:48 Condition: STABLE Forms: [facility] (E[place]ian)
[2019-02-07 17:49] LABS: BASO # 0.04 K/mm3 (0.0-2.0); BASO % 0.5 % (0.0-3.0); EOS # 0.1 (0.0-0.7); EOS % 1.3 % (1.5-5.0); HEMOGLOBIN 13.8 g/dL (14.0-18.0); LYMPH # 0.7 (1.2-3.4); LYMPH % 8.8 % (22.0-35.0); MEAN CELL VOLUME 100.5 fl (80.0-105.0); MEAN CORPUSCULAR HEMOGLOBIN 32.4 pg (25.0-35.0); MEAN CORPUSCULAR HGB CONC 32.2 g/dl (31.0-37.0); MEAN PLATELET VOLUME 10.3 fl (7.0-11.0); MONO # 0.7 (0.1-0.6); MONO % 8.5 % (1.0-6.0); RBC 4.26 10^6/uL (3.5-6.1); RED CELL DISTRIBUTION WIDTH 14.8 % (11.5-14.5); WHITE BLOOD COUNT 8.3 10^3/uL (4.5-11.0)
[2019-02-07 17:59] LABS: BLOOD UREA NITROGEN 20 mg/dL (7-21); GFR NON-AFRICAN AMERICAN > 60
--- NOTE | 2019-02-07 18:01 | RAD ---
Date of service: 02/07/2019 HISTORY: cough COMPARISON: 06/14/2017 FINDINGS: LUNGS: No active pulmonary disease. PLEURA: No significant pleural effusion identified, no pneumothorax apparent. CARDIOVASCULAR: Cardiomegaly. No evidence of acute, significant cardiovascular disease. Position/ configuration of pacemaker Atherosclerotic calcifications identified primarily aortic arch. OSSEOUS STRUCTURES: No significant abnormalities. VISUALIZED UPPER ABDOMEN: Normal. OTHER FINDINGS: None. IMPRESSION: No active disease. No significant interval change compared to the prior examination(s).
[2019-02-07 18:11] LABS: B-TYPE NATRIURETIC PEPTIDE 2280 pg/mL (0-450); INR 3.03; PARTIAL THROMBOPLASTIN TIME 42.1 Seconds (26.9-38.3); PROTHROMBIN TIME 33.6 SECONDS (9.4-12.5); TROPONIN I < 0.01 ng/mL
[2019-02-07 18:19] LABS: VENOUS BLOOD GAS BASE EXCESS 5.8 mmol/L (0.0-2.0); VENOUS BLOOD GAS PO2 42 mm/Hg (30-55); VENOUS BLOOD PH 7.38 (7.32-7.43)
[2019-02-07 18:24] LABS: INFLUENZA A B NEGATIVE FOR FLU A/B (NEGATIVE)
[2019-02-07 19:58] LABS: PH,URINE 6.5 (4.7-8.0); URINE BILIRUBIN NEGATIVE (NEGATIVE); URINE BLOOD TRACE-LYSED (NEGATIVE); URINE GLUCOSE (UA) NEGATIVE (NEGATIVE); URINE LEUKOCYTE ESTERASE NEGATIVE Leu/uL (NEGATIVE); URINE PROTEIN NEGATIVE mg/dL (<30 mg/dL); URINE UROBILINOGEN 0.2 E.U./dL (<1 E.U./dL)
[2019-02-07 20:14] LABS: URINE APPEARANCE CLEAR (CLEAR); URINE COLOR YELLOW (YELLOW)
[2019-02-07 20:15] LABS: URINE BACTERIA FEW /hpf
--- NOTE | 2019-02-07 20:15 | CARD ---
APPROVED REPORT Date of service: 02/07/2019 EKG Measurement Heart [id number] <Conclusion> Atrial fibrillation with rapid ventricular response ST-T Changes. Abnormal ECG
--- NOTE | 2019-02-07 20:44 | ED PDOC ---
Physical Exam Vital Signs Temp Pulse Resp BP Pulse Ox 02/07/19 19:12 99.9 F H 02/07/19 16:34 99.9 F H 107 H 18 134/79 95 Medical Decision Making ED Course and Treatment: 02/07/19 20:43 Case endorsed to me by Dr. Jr Grigsby, pending CT Head, re-evaluation, and disposition. 02/07/19 22:15 CT Head: BRAIN: Chronic periventricular and subcortical microvascular disease is seen. 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 No acute intracranial pathology. VENTRICLES: There is generalized parenchymal atrophy noted as demonstrated by symmetrical dilatation of ventricles and sulci. ORBITS: The orbits are unremarkable. SINUSES AND MASTOIDS: Bilateral ethmoid and right frontal sinusitis is seen. BONES: No fracture. SOFT TISSUES: Unremarkable. IMPRESSION: 1. There is generalized parenchymal atrophy. 2. Chronic periventricular and subcortical microvascular disease is seen. 3. 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 4. Bilateral ethmoid and right frontal sinusitis is seen. 5. No acute intracranial pathology. Electronically signed on Feb 07, 2019 10:13:56 PM EDT by: Tavares May M.D., M.B.A., Certified By [employer] Trained MRI and CT Specialist - Lab Interpretations Lab Results: pO2 42 mm/Hg (30-55) 02/07/19 17:44 VBG pH 7.38 (7.32-7.43) 02/07/19 17:44 VBG pCO2 55.0 (40-60) 02/07/19 17:44 VBG HCO3 32.5 mmol/l (21-28) H 02/07/19 17:44 VBG Total CO2 34.2 mmol.L (22-28) H 02/07/19 17:44 VBG O2 Sat (Calc) 79.4 % (40-65) H 02/07/19 17:44 VBG Base Excess 5.8 mmol/L (0.0-2.0) H 02/07/19 17:44 VBG Potassium 4.2 mmol/L (3.6-5.2) 02/07/19 17:44 Sodium 140.0 mmol/L (132-148) 02/07/19 17:44 Chloride 102.0 mmol/L (98-107) 02/07/19 17:44 Glucose 124 mg/dl (75-110) H 02/07/19 17:44 Lactate 1.2 mmol/L (0.7-2.1) 02/07/19 17:44 FiO2 21.0 % 02/07/19 17:44 PT 33.6 SECONDS (9.4-12.5) H 02/07/19 17:41 INR 3.03 02/07/19 17:41 APTT 42.1 Seconds (26.9-38.3) H 02/07/19 17:41 Troponin I < 0.01 ng/mL D 02/07/19 17:41 NT-Pro-B Natriuret Pep 2280 pg/mL (0-450) H 02/07/19 17:41 Urine Color Yellow (YELLOW) 02/07/19 19:50 Urine Appearance Clear (CLEAR) 02/07/19 19:50 Urine pH 6.5 (4.7-8.0) 02/07/19 19:50 Ur Specific [place] 1.020 (1.005-1.035) 02/07/19 19:50 Urine Protein Negative mg/dL (<30 mg/dL) 02/07/19 19:50 Urine Glucose (UA) Negative mg/dL (NEGATIVE) 02/07/19 19:50 Urine Ketones Negative mg/dL (NEGATIVE) 02/07/19 19:50 Urine Blood Trace-lysed (NEGATIVE) H 02/07/19 19:50 Urine Nitrate Negative (NEGATIVE) 02/07/19 19:50 Urine Bilirubin Negative (NEGATIVE) 02/07/19 19:50 Urine Urobilinogen 0.2 E.U./dL (<1 E.U./dL) 02/07/19 19:50 Ur Leukocyte Esterase Negative Yadira/uL (NEGATIVE) 02/07/19 19:50 Urine RBC 1 - 3 /hpf (0-2) H 02/07/19 19:50 Urine WBC 1 - 3 /hpf (0-6) 02/07/19 19:50 Ur Epithelial Cells 4 - 5 /hpf (0-5) 02/07/19 19:50 Urine Bacteria Few /hpf (NONE) 02/07/19 19:50 - RAD Interpretation Radiology Orders: 02/07/19 17:13 CHEST PORTABLE [RAD] Stat 02/07/19 20:30 HEAD W/O CONTRAST [CT] Stat - Medication Orders Current Medication Orders: Discontinued Medications Acetaminophen (Tylenol 325mg Tab) 975 mg PO STAT STA Stop: 02/07/19 18:36 Last Admin: 02/07/19 19:12 Dose: 975 mg MAR Pain/Vitals Document 02/07/19 19:12 BB (Rec: 02/07/19 19:13 BB [id number]) Pain Reassessment Is This A Pain ReAssessment? No Sleep Is patient sleeping during reassessment? No Presence of Pain Presence of Pain No Vitals Temperature (97.6 F-99.6 F) 99.9 F Temperature Source Oral Disposition/Present on Arrival - Present on Arrival History of DVT/PE: No History of Uncontrolled Diabetes: No Urinary Catheter: No History of Decub. Ulcer: No History Surgical Site Infection Following: None - Disposition Diagnosis: Upper respiratory infection Patient Problems: Current Active Problems Problem Status Onset Upper respiratory infection Acute Condition: STABLE Forms: [employer] (Divehi)
[2019-02-07 23:41] VITALS: BP 131/78; PULSE 89; TEMP 99.1; O2SAT 100
--- NOTE | 2019-02-08 09:58 | CT ---
Date of service: 02/07/2019 PROCEDURE: CT HEAD WITHOUT CONTRAST. HISTORY: ams COMPARISON: 11/10/2016 TECHNIQUE: Axial computed tomography images were obtained through the head/brain without intravenous contrast. Radiation dose: Total exam DLP = 944.4 mGy-cm. This CT exam was performed using one or more of the following dose reduction techniques: Automated exposure control, adjustment of the mA and/or kV according to patient size, and/or use of iterative reconstruction technique. FINDINGS: HEMORRHAGE: No intracranial hemorrhage. BRAIN: No mass effect or edema. Severe chronic encephalomalacia is seen in the left hemisphere including the left frontal lobe and occipital lobe VENTRICLES: Unremarkable. No hydrocephalus. CALVARIUM: Unremarkable. PARANASAL SINUSES: Unremarkable as visualized. No significant inflammatory changes. MASTOID AIR CELLS: Unremarkable as visualized. No inflammatory changes. OTHER FINDINGS: The report concurs with the preliminary [facility] report IMPRESSION: No acute intracranial findings
== END 2019-02-07 22:15 | disposition home or self-care (01) ==
LOC: ED 16:28
DX: J06.9 Acute upper respiratory infection, unspecified (principal); G20 Parkinson's disease; I10 Essential (primary) hypertension; I50.9 Heart failure, unspecified; Z86.73 Personal history of transient ischemic attack (TIA), and cerebral infarction without residual deficits; Z87.891 Personal history of nicotine dependence